=== PATIENT | male | born 1960 | race Hispanic/Latino ===

== ENCOUNTER 2023-08-20 18:10 | Emergency (ER) | payer SELFPAY ==
[2023-08-20] MEDS ORDERED: NA CHLORIDE 0.9% 1,000 ML ONE (18:27)
[2023-08-20 18:39] LABS: Absolute Basophils 0.1 K/uL (0-0.5); Absolute Eosinophils 0.2 K/uL (0-0.5); Absolute Lymphocytes (CBC) 3.1 K/uL (0.7-4.9); Absolute Monocytes 0.3 K/uL (0.1-1.3); Absolute Neutrophil 3.1 K/uL (1.8-8.0); Basophils % 1.1 % (0-1.3); Eosinophils % 3.1 % (0-4.4); Hematocrit 40.7 % (39.6-49.0); Lymphocytes % 45.6 % (15.3-44.8); MCH 31.9 pg (27.0-35.0); MCHC 34.4 g/dL (32.0-36.0); MCV 92.7 fL (80-100); Monocytes % 4.2 % (3.3-12.3); Nucleated Red Blood Cells % 0.3 % (0-0); Platelets 190 thou/uL (152-406); RBC Red Blood Cell Count 4.39 M/uL (4.33-5.43); Red Cell Distribution Width 14.1 % (12.1-15.2)
--- NOTE | 2023-08-20 20:09 | RAD REPORT ---
EXAM DESCRIPTION: US - Extrem Venous W Compress Floyd - 08/20/2023 7:26 pm CLINICAL HISTORY: Pain COMPARISON: None. TECHNIQUE: Real-time sonographic evaluation of the bilateral lower extremity deep venous systems was performed. FINDINGS: Normal compressibility, flow augmentation, phasic flow and spontaneous flow is identified in both the left and right lower extremity deep venous systems. No intraluminal filling defects seen. IMPRESSION: No DVT in either lower extremity.
[2023-08-20 20:14] LABS: Anion Gap 7.4 mEq/L (5.0-15.0); Potassium 3.4 mEq/L (3.5-5.1)
--- NOTE | 2023-08-20 20:15 | RAD REPORT ---
EXAM DESCRIPTION: US - Lower Extremity Arterial Bilat - 08/20/2023 7:26 pm CLINICAL HISTORY: PAIN COMPARISON: No comparisons TECHNIQUE: Bilateral lower extremity arterial Doppler examination was performed with taylor pearson FINDINGS: Monophasic waveforms are seen throughout both lower extremity arterial systems to the level of the do rsalis pedis on the left, and posterior tibial artery on the right. Biphasic waveforms along the righ t dorsalis pedis artery. IMPRESSION: Evidence of at least moderate bilateral peripheral vascular disease.
[2023-08-20] MEDS ORDERED: GABAPENTIN 300 MG CAP ONE (20:32)
--- NOTE | 2023-08-20 21:03 | EDPHYS ---
Physician Documentation [facility] Name: Kodi Martinez Age: 62 yrs Sex: Male : 1960 Arrival Date: 08/20/2023 Time: 18:10 Bed 15 Private MD: ED Physician Jose Hoang HPI: 08/19 21:45 This 62 yrs old Male presents to ER via EMS with complaints of Leg Pain. kb 21:45 Pt is a 62 year old male who presents for bilateral lower extremity pain that started 3 kb days ago. States he can't afford his insulin so he hasn't had any home medications for 1 month. Pt reports history of PVD, htn, dm and neuropathy. . Historical: - Allergies: 18:20 No Known Allergies; as6 - PMHx: 18:20 Diabetes mellitus; Hypertensive disorder; Arthritis; as6 - Immunization history:: Adult Immunizations not up to date. - Infectious Disease History:: Denies. - Social history:: Smoking status: Patient reports the use of cigarette tobacco products, smokes one-half pack cigarettes per day. ROS: 21:45 Constitutional: As per HPI kb Exam: 21:45 Constitutional: This is a well developed, well nourished patient who is awake, alert, kb and in no acute distress. Head/Face: Normocephalic, atraumatic. ENT: Moist Mucous membranes Cardiovascular: Regular rate Respiratory: Respirations even and unlabored. No increased work of breathing. Talking in full sentences Abdomen/GI: Soft, non-tender. No distention Skin: Warm, dry with normal turgor. Normal color. Neuro: Awake and alert, GCS 15, oriented to person, place, time, and situation. Moves all extremities. Normal gait. 21:45 Musculoskeletal/extremity: Extremities: grossly normal except: noted in the right leg kb and left leg: pain, tenderness, ROM: intact in all extremities, Circulation is intact in all extremities. Sensation intact. Weight bearing: able to fully bear weight, Vital Signs: 18:25 BP 146 / 62; Pulse 94; Resp 18; Temp 97.5; Pulse Ox 100% ; Weight 63.5 kg; Height 5 ft. as6 7 in. ; Pain 10/10; 19:35 BP 184 / 88; Pulse 91; Resp 18; Temp 98.2; Pulse Ox 100% on R/A; Pain 10/10; pc2 20:30 BP 157 / 65; Pulse 86; Resp 18; Pulse Ox 100% on R/A; Pain 10/10; pc2 18:25 Body Mass Index 21.93 (63.50 kg, 170.18 cm) as6 18:25 Pain Scale: Adult as6 19:35 Pain Scale: Adult pc2 20:30 Pain Scale: Adult pc2 MDM: 18:12 Patient medically screened. kb 21:48 Differential diagnosis: neuropathy, dvt, arterial occlusion. Data reviewed: vital kb signs, nurses notes. Historians other than the Patient: EMS: [facility]. Counseling: I had a detailed discussion with the patient and/or guardian regarding the historical points, exam findings, and any diagnostic results supporting the discharge/admit diagnosis, lab results, radiology results, the need for outpatient follow up, a family practitioner, to return to the emergency department if symptoms worsen or persist or if there are any questions or concerns that arise at home. 08/19 18:12 Order name: CBC with Diff; Complete Time: 18:45 kb 08/19 18:12 Order name: Basic Metabolic Panel; Complete Time: 20:15 kb 08/19 18:13 Order name: Extremity Venous W Compression Floyd; Complete Time: 20:12 kb 08/19 18:13 Order name: Lower Extremity Arterial Bilateral; Complete Time: 20:19 kb 08/19 18:12 Order name: IV Start; Complete Time: 18:27 kb 08/19 18:44 Order name: Labs - recollect needed: green; Complete Time: 19:46 ss Administered Medications: 18:35 Drug: NS 0.9% IV 1000 ml IV at 1000 ml once Route: IV; Rate: 1000 ml; Site: left as6 antecubital; 20:29 Follow up: IV Status: Completed infusion; IV Intake: 1000ml pc2 20:35 Drug: Gabapentin PO 300 mg PO once Route: PO; pc2 Disposition Summary: 08/20/23 21:02 Discharge Ordered Notes: Location: Home kb Condition: Stable kb Diagnosis - Peripheral vascular disease, unspecified kb - Hyperglycemia, unspecified kb Followup: kb - With: Emergency Department - When: As needed - Reason: Worsening of condition Followup: kb - With: Private Physician - When: 2 - 3 days - Reason: Recheck today's complaints, Continuance of care, Re-evaluation by your physician Discharge Instructions: - Discharge Summary Sheet kb - Hyperglycemia, [id number] kb - Peripheral Vascular Disease, [id number] kb - Type 2 Diabetes Mellitus, Diagnosis, Adult, [id number] kb Forms: - Medication Reconciliation Form kb - Antibiotic Education kb - Prescription Opioid Use kb - Patient Portal Instructions kb - Leadership Thank You Letter kb Prescriptions: - Neurontin 300 mg Oral capsule - take 1 capsule ORAL route At bedtime; 10 capsule; Refills: 0, Product Selection kb Permitted Signatures: Dispatcher [employer] EDMS Aline Malone, ZOO VETERINARIAN-C ZOO VETERINARIAN-Ckb Albina Lindsay RN RN ss Dimas Cartwright RN RN as6 Michelle lugo, RN RN pc2 Corrections: (The following items were deleted from the chart) 21:47 21:45 Constitutional: This is a well developed, well nourished patient who is awake, kb alert, and in no acute distress. kb
--- NOTE | 2023-08-20 21:03 | ER ---
Nurse's Notes [facility] Name: Kodi Martinez Age: 62 yrs Sex: Male : 1960 Arrival Date: 08/20/2023 Time: 18:10 Bed 15 [facility] MD: Diagnosis: Peripheral vascular disease, unspecified;Hyperglycemia, unspecified Presentation: 08/19 18:19 Chief complaint: EMS states: called out for leg pain and hand numbness. Coronavirus as6 screen: At this time, the client does not indicate any symptoms associated with coronavirus-19. Ebola Screen: No symptoms or risks identified at this time. Risk Assessment: Do you want to hurt yourself or someone else? Patient reports no desire to harm self or others. Onset of symptoms was August 20, 2023. 18:19 Method Of Arrival: EMS: [facility] as6 18:19 Acuity: BRENDA 3 as6 18:25 Chief complaint: Patient states: pain all over. Initial Sepsis Screen: Does the patient as6 meet any 2 criteria? No. Patient's initial sepsis screen is negative. Does the patient have a suspected source of infection? No. Patient's initial sepsis screen is negative. Historical: - Allergies: 18:20 No Known Allergies; as6 - PMHx: 18:20 Diabetes mellitus; Hypertensive disorder; Arthritis; as6 - Immunization history:: Adult Immunizations not up to date. - Infectious Disease History:: Denies. - Social history:: Smoking status: Patient reports the use of cigarette tobacco products, smokes one-half pack cigarettes per day. Screenin:05 [facility] ED Fall Risk Assessment (Adult) History of falling in the last 3 months, pc2 including since admission No falls in past 3 months (0 pts). Abuse screen: Denies threats or abuse. Denies injuries from another. Nutritional screening: No deficits noted. Tuberculosis screening: No symptoms or risk factors identified. Assessment: 19:35 Reassessment: Pt roomed to bed 15 from . Lab redraw performed and sent to lab. Pt pc2 tolerated well. 19:54 General: Appears uncomfortable, unkempt, Behavior is cooperative, restless. Pain: pc2 Complains of pain in right leg and left leg Pain at worst was 10 out of 10 on a pain scale. Quality of pain is described as dull, Pain began 2-3 days ago. Is episodic, Aggravated by weight bearing, Noted to be grimacing, moaning, restless, Also complains of inability to perform activities of daily living. Neuro: Madsen Agitation-Sedation Scale (RASS): +1 Restless Level of Consciousness is awake, alert, obeys commands, Oriented to person, place, time, situation, Appropriate for age Speech is normal. Cardiovascular: Patient's skin is warm and dry. Respiratory: Airway is patent Respiratory effort is even, unlabored, Respiratory pattern is regular, symmetrical. GI: No signs and/or symptoms were reported involving the gastrointestinal system. : No signs and/or symptoms were reported regarding the genitourinary system. EENT: No signs and/or symptoms were reported regarding the EENT system. Derm:. Derm: Skin is intact, healed surgical scars noted to susanna lower ext. Musculoskeletal: Reports pain in right leg and left leg reports unable to bear weight due to pain. Musculoskeletal: Circulation, motion, and sensation intact. Range of motion: intact in all extremities, amp to left great toe Reports pain in right leg and left leg. 21:16 Reassessment: Patient appears in no apparent distress at this time. Patient and/or jb4 family updated on plan of care and expected duration. Pain level reassessed. Patient is alert, oriented x 3, equal unlabored respirations, skin warm/dry/pink. Pt verbalized understanding of d/c and follow up instructions. Vital Signs: 18:25 BP 146 / 62; Pulse 94; Resp 18; Temp 97.5; Pulse Ox 100% ; Weight 63.5 kg; Height 5 ft. as6 7 in. ; Pain 10/10; 19:35 BP 184 / 88; Pulse 91; Resp 18; Temp 98.2; Pulse Ox 100% on R/A; Pain 10/10; pc2 20:30 BP 157 / 65; Pulse 86; Resp 18; Pulse Ox 100% on R/A; Pain 10/10; pc2 18:25 Body Mass Index 21.93 (63.50 kg, 170.18 cm) as6 18:25 Pain Scale: Adult as6 19:35 Pain Scale: Adult pc2 20:30 Pain Scale: Adult pc2 ED Course: 18:11 Patient arrived in ED. mg5 18:12 Aline Malone FNP-C is PHCP. kb 18:12 Jose Hoang MD is Attending Physician. kb 18:20 Triage completed. as6 18:26 Arm band placed on. as6 18:35 CBC with Diff Sent. as6 18:35 Basic Metabolic Panel Sent. as6 18:35 Maintain EMS IV. Dressing intact. Good blood return noted. Site clean \T\ dry. Gauge \T\ as 6 site: 20g LAC. 19:28 US Extremity Venous W Compression Susanna In Process Unspecified. EDMS 19:28 US Lower Extremity Arterial Bilateral In Process Unspecified. EDMS 19:30 Michelle lugo, RN is Primary Nurse. pc2 20:06 Patient has correct armband on for positive identification. Bed in low position. Call pc2 light in reach. Side rails up X2. Provided Education on: plan of care. 21:16 No provider procedures requiring assistance completed. IV discontinued, intact, jb4 bleeding controlled, No redness/swelling at site. Pressure dressing applied. Administered Medications: 18:35 Drug: NS 0.9% IV 1000 ml IV at 1000 ml once Route: IV; Rate: 1000 ml; Site: left as6 antecubital; 20:29 Follow up: IV Status: Completed infusion; IV Intake: 1000ml pc2 20:35 Drug: Gabapentin PO 300 mg PO once Route: PO; pc2 Medication: 20:06 VIS not applicable for this client. pc2 Intake: 20:29 IV: 1000ml; Total: 1000ml. pc2 Outcome: 21:02 Discharge ordered by MD. kb 21:16 Discharged to home via wheelchair, with family, jb4 21:16 Condition: stable 21:16 Discharge instructions given to patient, Instructed on discharge instructions, follow up and referral plans. Demonstrated understanding of instructions, follow-up care, 21:17 Patient left the ED. jb4 Signatures: Dispatcher [employer] EDMS Aline Malone, JAVA GOLDEN GATE DEVELOPER-C ARAMIS-Chacorta Zhou, RN RN jb4 Dimas Cartwright, MELANI RN as6 Rochelle Singh mg5 Michlele lugo, RN RN pc2
[2023-08-20 21:48] VITALS: BP 157/65; TEMP 98.2; O2SAT 100
== END 2023-08-20 21:17 | disposition home or self-care (01) ==
LOC: ER 18:10
DX: I73.9 Peripheral vascular disease, unspecified (principal); E11.65 Type 2 diabetes mellitus with hyperglycemia
CPT/HCPCS: 36415; 80048; 85025; 93925; 93970; 96360; 96361; 99284; J7030